=== PATIENT | female | born 1955 | race American Indian/Alaskan Native ===

== ENCOUNTER 2017-11-24 14:30 | Outpatient (CLI) | payer OTHER ==
[2017-11-24 15:54] LABS: Blood Urea Nitrogen 9 mg/dL (7-17)
[2017-11-24] MEDS ORDERED: NACL ONE (16:05)
--- NOTE | 2017-11-24 17:39 | Cat Scan Report ---
FINAL REPORT EXAM: CT ANGIO HEAD HISTORY: EPISTAXIS CT angiogram head with intravenous contrast multiplanar and maximum intensity projection reconstructions PRIORS: None. FINDINGS: Normal appearance of the intracranial portion of the carotid arteries. The MCA and CARMEN distributions are unremarkable Distal vertebral arteries are intact. The basilar and [employer]ICAL TRANSCRIPTIONIST circulation is within normal limits No evidence for major vascular occlusion or aneurysm There is near complete opacification of the left maxillary sinus. There is complete opacification through left ethmoid air cells and into left frontal and left sphenoid cells. There is fracture through the lateral wall of the left maxillary sinus and the left orbital floor age indeterminate but appears most likely chronic. IMPRESSION: Normal appearance of the intracranial vasculature without evidence for major occlusion or stenosis Fractures through the lateral wall of the left maxillary sinus on the left orbital floor age indeterminate however appear most likely is chronic or subacute. There is complete to near complete opacification of the left paranasal sinuses extending from the maxillary through the ethmoid, left frontal cells and left sphenoid sinus. Findings are most consistent with a unilateral acute on chronic sinusitis.
== END 2017-11-24 14:31 | disposition home or self-care (01) ==
LOC: CT 14:30
DX: S02.19XA Other fracture of base of skull, initial encounter for closed fracture (principal); R04.0 Epistaxis; X58.XXXA Exposure to other specified factors, initial encounter; Y93.89 Activity, other specified; Y92.89 Other specified places as the place of occurrence of the external cause; Y99.8 Other external cause status
CPT/HCPCS: 36415; 70496; 82565; 84520; Q9967

== ENCOUNTER 2020-10-28 06:35 | Emergency (ER) | payer BC, OTHER ==
--- NOTE | 2020-10-28 07:15 | Emergency Department Report ---
Upper Extremity - HPI Chief Complaint: Fall Stated Complaint: FALL;HAND INJURY Time Seen by Provider: 10/28/20 07:12 Upper Extremity: Right Hand, Right Ring Finger Occurred When: >5 Days Mechanism: Fall Severity: moderate Symptoms: Yes Pain with Movement, Yes Limited Range of Movement, Yes Swelling, Yes Bruising/Ecchymosis, No Deformity, No Numbness, No Weakness, No Laceration or Abrasion Other History: 65-year-old female presents to the ER today complaining of right hand/right ring finger pain and injury. Patient states that last week Tuesday she was about to sit in a chair, when the chair moved from underneath her causing her to fall. She states that in the process of trying to grab a hold of the railing she injured her right hand/finger. She states that she had lots of bruising and swelling to the right hand and right ring finger but it has decreased but she still having pain especially around the right fourth and fifth finger. She reports difficulty with flexion of the right fourth finger. She reports no numbness, tingling or weakness. ED Review of Systems ROS: Stated complaint: FALL;HAND INJURY Other details as noted in HPI Comment: All other systems reviewed and negative Constitutional: denies: chills, fever Eyes: denies: eye pain, eye discharge, vision change ENT: denies: ear pain, throat pain Respiratory: denies: cough, shortness of breath, wheezing Cardiovascular: denies: chest pain, palpitations Musculoskeletal: joint swelling, arthralgia Neurological: denies: headache, weakness, paresthesias Psychiatric: denies: anxiety, depression Hematological/Lymphatic: denies: easy bleeding, easy bruising ED Past Medical Hx - Past Medical History Previous Medical History?: Yes Hx Hypertension: Yes - Surgical History Past Surgical History?: No - Social History Smoking Status: Current Some Day Smoker - Medications Home Medications: Home Medications Medication Instructions Recorded Confirmed Last Taken Type Acetaminophen/Codeine [Tylenol 1 tab PO Q4HR PRN #12 tablet 10/28/20 Unknown Rx /Codeine # 3 tab] Ibuprofen [Motrin] 600 mg PO Q8H PRN #30 tablet 10/28/20 Unknown Rx Upper Extremity Exam - Exam General: Vital signs noted. No distress. Alert and acting appropriately. Head and Torso: No HEENT Abnormality, No Chest/Lungs Abnormality Wrist: Yes Normal ROM in Wrist, No Wrist Tenderness, No Wrist Deformity, No Snuffbox Tenderness, No Pain with Axial Thumb Compression Hand: Yes Digit Tenderness (Moderate tenderness to palpation to the right fourth knuckle, right fourth proximal phalanx, and right fourth PIP joint; moderate tenderness to palpation over the right fifth knuckle), Yes Normal ROM in Digit(s) (Decreased flexion at the level of the right fourth PIP joint), Yes Tendon Dysfunction, No Hand Tenderness, No Hand Deformity, No Digit(s) Deformity CMS Exam: Yes Normal Distal Pulses, Yes Normal Capillary Refill, Yes Normal Distal Sensation, No Broken Skin (No open wounds but there is moderate amount of bruising noted to the dorsal aspect of the right hand over the fourth and fifth and third metacarpal bones as well as the right third fourth and fifth knuckle and the proximal aspect of the right fourth finger) ED Course Vital Signs 10/28/20 06:44 Temperature 98.2 F Pulse Rate 64 Respiratory 18 Rate Blood Pressure 224/109 O2 Sat by Pulse 97 Oximetry - Orthopedic Splinting/Casting Injury #1 Side: right Upper Extremity Injury Location: finger Upper Extremity Immobilizer: aluminum form splint, lola tape Additional Comments: Patient NV post splinting ED Medical Decision Making - Radiology Data Radiology results: report reviewed Ordering Physician: UMM GILMORE Date of Service: 10/28/20 Procedure(s): XR hand 3+V RT Accession Number(s): [id number] cc: UMM GILMORE Fluoro Time In Minutes: RIGHT HAND 3 VIEWS INDICATION: right hand/right ring finger injury. COMPARISON: None. IMPRESSION: Borderline bone mineralization. An oblique nondisplaced fracture is identified near the base of the proximal phalanx of the fourth digit. No calcified callus is identified. No convincing extension to the third metacarpophalangeal joint. No significant joint pathology. There is mild soft tissue swelling of the fourth digit. Signer Name: Bryson Watson Jr, MD Signed: 10/28/2020 8:06 AM Workstation Name: [id number] Transcribed By: TTR Dictated By: BRYSON WATSON JR, MD Electronically Authenticated By: BRYSON WATSON JR, MD Signed Date/Time: 10/28/20805 DD/ 4 TD/TT: - Medical Decision Making Ring cutter used to remove ring of right fourth finger. X-ray shows that she has a nondisplaced oblique fracture near the base of the proximal phalanx of the right fourth finger. Discussed x-ray results with patient. She was placed in a aluminum finger splint and lola taped. Patient understands the importance of following up with visitor services specialist. She was given referral. Patient blood pressure was noted to be elevated throughout stay but she does have a history of hypertension and she admits she has been out of her blood pressure medication for the past 2 days. She does have a refill at the pharmacy and states that she is going to get it filled as soon as she leaves the ER. Patient has no symptoms related to her blood pressure. She is neurologically intact. No indication for emergent treatment at this time. Patient was stable at time of discharge. Critical care attestation.: If time is entered above; I have spent that time in minutes in the direct care of this critically ill patient, excluding procedure time. ED Disposition Clinical Impression: Finger fracture, right Disposition: [id number] TO HOME OR SELFCARE Is pt being admited?: No Does the pt Need Aspirin: No Condition: Stable Instructions: Finger Fracture, Adult, [id number] Additional Instructions: Do not removed finger splint. Do not get it wet. I recommend follow up with Batch Mixer Operator listed on your D/C instructions. Take the medications given as prescribed. Return to ED if symptoms changes or worsens in anyway. Prescriptions: Ibuprofen [Motrin] 600 mg PO Q8H PRN #30 tablet PRN Reason: Pain Acetaminophen/Codeine [Tylenol /Codeine # 3 tab] 1 tab PO Q4HR PRN #12 tablet PRN Reason: Pain Referrals: [facility] [Other] - 3-5 Days PEDRO PADILLA MD [Staff Physician] - 3-5 Days Forms: Work/School Release Form(ED) Time of Disposition: 08:24
[2020-10-28] MEDS ORDERED: IBUPROFEN 600 MG TAB PO ONE (07:38)
--- NOTE | 2020-10-28 08:10 | XRay Report ---
RIGHT HAND 3 VIEWS INDICATION: right hand/right ring finger injury. COMPARISON: None. IMPRESSION: Borderline bone mineralization. An oblique nondisplaced fracture is identified near the base of the proximal phalanx of the fourth digit. No calcified callus is identified. No convincing e xtension to the third metacarpophalangeal joint. No significant joint pathology. There is mild soft t issue swelling of the fourth digit. Signer Name: Bryson Reaves Jr, MD Signed: 10/28/2020 8:06 AM Workstation Name: [id number]
[2020-10-28 08:31] VITALS: BP 223/103
== END 2020-10-28 08:32 | disposition home or self-care (01) ==
LOC: ED 06:35
DX: S62.604A Fracture of unspecified phalanx of right ring finger, initial encounter for closed fracture (principal); I10 Essential (primary) hypertension; F17.200 Nicotine dependence, unspecified, uncomplicated; Z79.899 Other long term (current) drug therapy; W18.30XA Fall on same level, unspecified, initial encounter; Y93.89 Activity, other specified; Y92.89 Other specified places as the place of occurrence of the external cause; Y99.8 Other external cause status